=== PATIENT | female | born 1945 | race Caucasian/White ===

== ENCOUNTER 2024-12-21 11:03 | Emergency (ER) | payer BC ==
[~2024-12-21] VITALS: Ht 160 cm; Wt 77.0 kg
[2024-12-21 11:14] VITALS: O2SAT 99
[2024-12-21] MEDS: ACETAMINOPHEN 325MG TABLET PO ONE (11:54)
[2024-12-21] MEDS: HYDRALAZINE 20MG/ML VIAL IV ONE (11:56)
[2024-12-21 13:09] LABS: HEMATOCRIT. 38.6 % (36.0-48.0); HEMOGLOBIN. 12.8 g/dL (12.0-16.0); MEAN PLATELET VOLUME 9.6 fl (7.4-10.4); PLATELET 216 x1000/uL (130-400); RED BLOOD CELL COUNT 4.33 mill/uL (4.2-5.4); RED CELL DISTRIBUTION WIDTH 14.6 % (11.6-14.6)
[2024-12-21 13:30] LABS: CREATININE 0.9 mg/dL (0.6-1.0); UREA NITROGEN BLOOD 12 mg/dL (9-23)
[2024-12-21 13:32] LABS: ASPARTATE AMINOTRANSFERASE 17 IU/L (<34)
[2024-12-21 13:33] LABS: BILIRUBIN TOTAL 0.5 mg/dL (0.1-1.0); PROTEIN TOTAL 7.8 g/dL (6.0-8.3)
[2024-12-21] MEDS ORDERED: ACET-2708 MT (13:51)
[2024-12-21] MEDS ORDERED: ACYC200C31 MT (13:51)
[2024-12-21 13:53] LABS: BAND% 7.0 % (1.0-6.0); EOSINOPHILS % MANUAL 6.0 % (0.0-5.0); LYMPHOCYTES % MANUAL 32.0 % (20.0-60.0); MONOCYTES % MANUAL 18.0 % (2.0-8.0); NEUTROPHILS % MANUAL 37.0 % (45.0-75.0); PLATELET ESTIMATE NORMAL
[2024-12-21 14:29] VITALS: BP 170/87; PULSE 64; RESP 18; TEMP 37; O2SAT 99
== END 2024-12-21 14:32 | disposition home or self-care (01) ==
LOC: ER 11:03
DX: G44.209 Tension-type headache, unspecified, not intractable (principal); I10 Essential (primary) hypertension; B02.9 Zoster without complications; Z79.899 Other long term (current) drug therapy
CPT/HCPCS: 99285; 96374; 70450; 80053; 85025; 36415; J0360